=== PATIENT | male | born 1930 | race Caucasian/White ===

== ENCOUNTER 2019-04-19 08:23 | Inpatient (IN) ==
[2019-04-19 10:29] LABS: BASO# 0.03 X1000 (0.0-0.2); BASO% 0.3 % (0.0-0.8); EOS# 0.17 X1000 (0.0-0.7); EOS% 1.9 % (0.0-10.0); HEMATOCRIT 46.9 % (42.0-52.0); HEMOGLOBIN 14.2 g/dL (14.0-18.0); LYMPH# 1.42 X1000 (1.2-3.4); LYMPH% 15.7 % (20.5-51.1); MCH 30.7 PG (27-31); MCHC 30.3 g/dL (33-37); MCV 101.5 FL (81-99); MONO# 0.73 X1000 (0.11-0.59); MONO% 8.1 % (1.7-9.3); NEUT# 6.68 X1000 (1.4-6.5); PLT 170 X1000 (130-400); RBC 4.62 XMIL (4.7-6.1); RDW 15.5 % (11.5-14.5); WBC 9.03 X1000 (4.8-10.8)
[2019-04-19 10:35] LABS: INR 1.01; PROTIME 13.4 Seconds (11.0-16.0)
[2019-04-19 10:52] LABS: PTT 20.3 Seconds (22.3-41.8)
[2019-04-19 10:54] LABS: URINE SOURCE CATH
[2019-04-19 11:05] LABS: COLOR RED; SP GRAVITY URINE 1.022; TURBIDITY URINE TURBID (CLEAR)
[2019-04-19 11:06] LABS: UR EPITHELIAL CELLS <10 /HPF (<10)
[2019-04-19 11:11] LABS: ALB/GLOB RATIO 0.9; ALBUMIN 2.7 g/dL (3.5-5.0); CALCIUM 8.3 mg/dL (8.8-10.2); CREATININE 1.3 mg/dL (0.7-1.2); POTASSIUM 3.4 mmol/L (3.5-5.1); TOTAL BILIRUBIN 0.62 mg/dL (0.20-1.00); TOTAL PROTEIN 5.7 g/dL (6.3-8.3)
[2019-04-19 11:27] LABS: URINE RBC TNTC /HPF (<10); URINE WBC TNTC /HPF (<10)
[2019-04-19 11:28] LABS: BILIRUBIN URINE MODERATE (NEGATIVE); GLUCOSE URINE 100 mg/dL (NEGATIVE); URINE BACTERIA 2+ /HPF
[2019-04-19 11:29] LABS: BLOOD URINE LARGE (NEGATIVE); KETONE URINE 10 mg/dL (NEGATIVE); LEUKOCYTES URINE LARGE (NEGATIVE); NITRITE URINE POSITIVE (NEGATIVE); PROTEIN URINE 300 mg/dL (NEGATIVE); UROBILINOGEN URINE 8 mg/dL (NORMAL)
[2019-04-19] MEDS ORDERED: LEVAQUIN 500 MG/D5W 500 MG/100 ML IVPB IV ONE (11:59)
[2019-04-19] MEDS ORDERED: NS 1,000 ML IV ONE ×2 (12:07→12:08)
--- NOTE | 2019-04-19 12:07 | PROVIDER DOCUMENTATION ---
This chart was entered by Yocasta Dozier Scribe, acting as scribe for Brett Christy MD. HPI-General Adult - General Chief Complaint: Bleeding Disorder Stated Complaint: Male Time Seen by Provider: 04/19/19 08:50 Source: patient Allergies/Adverse Reactions: Patient Allergies Allergy/AdvReac Type Severity Reaction Status Date / Time No Known Allergies Allergy Verified 12/16/17 16:49 Home Medications: Home Medication List Medication Instructions Recorded Confirmed Last Taken Type Aspirin EC 81 mg PO DAILY 06/29/17 12/16/17 Unknown History Pantoprazole [Protonix] 40 mg PO DAILY@0700 #90 tab 07/02/17 12/16/17 Unknown Rx Sucralfate [Carafate Liquid] 1 gm PO AC + HS #120 [facility] [place] 07/02/17 12/16/17 Unknown Rx Clonidine [Catapres] 0.1 mg PO TID #30 tablet 12/21/17 Unknown Rx Lactulose 30 ml PO BID udc 12/21/17 Unknown Rx Linaclotide [Linzess] 145 mcg PO DAILY #0 12/21/17 12/16/17 Unknown Rx Menthol/Zinc Oxide Ointment 1 gm TOP PRN PRN tube 12/21/17 Unknown Rx [Calmoseptine Ointment] - History of Present Illness -Gen Adult Nature of Presenting Problems: 88 yom presents to the ed via ems first response with c/o hematuria. pt comes from [facility] with 2 days by staff of noted in brief of pt. pt is nonverbal with dementai so can not help with history. pt looks to be in no distress on exam Location of Pain/Injury: reports: none Pain Radiation: reports: no radiation Quality of Pain: reports: none Severity: reports: mild Onset/Duration: reports: 2 days ago Timing: reports: still present, intermittent Context/Activities at Onset: reports: light activity Modifying Factors: improves with: nothing Associated Symptoms: reports: genitourinary problems. denies: chest pain, diarrhea, fever/chills, nausea, shortness of breath, vomiting Similar Symptoms Previously?: No Recently seen or treated by another doctor?: No Review of Systems - Adult - REVIEW OF SYSTEMS - ADULT ROS:: limited per condition (pt is nonverbal) Constitutional: denies: chills, fever Eyes: reports: no symptoms reported Ears, Nose, Mouth & Throat: reports: no symptoms reported Cardiovascular: denies: chest pain, palpitations, syncope Respiratory: denies: cough, shortness of breath, wheezing Gastrointestinal: denies: abdominal pain, nausea, vomiting Genitourinary: reports: see HPI, frequent UTI's, hematuria Musculoskeletal: reports: no symptoms reported Integumentary: reports: no symptoms reported Neurological: denies: dizziness/vertigo, headache/migraines Psychiatric: reports: no symptoms reported Endocrine: reports: no symptoms reported Hematologic/Lymphatic: reports: no symptoms reported Allergic/Immunologic: reports: no symptoms reported All Other Systems: Reviewed and Negative Past History - Adult - PAST MEDICAL HISTORY-ADULT Review of Records: reports: Old Records Reviewed, Nursing Assessment Review, Medications Reviewed, Social history reviewed & non-contributory. Major Childhood Illnesses: reports: denies history Cardiovascular: reports: HTN Respiratory: reports: denies history Gastrointestinal: reports: denies history Genitourinary: reports: chronic UTI's Musculoskeletal: reports: denies history Neurological: reports: dementia Psychiatric: reports: denies history Endocrine/Immune: reports: Diabetes Diabetes Type: Type 2 Other Conditions: reports: denies history - PRIOR SURGERIES/PROCEDURES Surgical/Procedure History: reports: reviewed, not pertinent - IMMUNIZATION STATUS Childhood Immunizations: See Nurse Assessment Flu Vaccine: See Nurse Assessment - FAMILY HISTORY Family History: reviewed, not pertinent - SOCIAL HISTORY Smoking: denies Substance Use: denies Living Situation: care facility Physical Exam-General - PHYSICAL EXAM-ADULT Exam Limited by: pt is nonverbal and dementia pt. Initial Vital Signs Reviewed: Yes - CONSTITUTIONAL General Appearance: alert, no apparent distress - EYES Eyes: PERRL/EOMI, pink conjunctivae - HEAD, EARS, NOSE, MOUTH & THROAT HENMT: moist mucous membranes - NECK Neck: non-tender, full range of motion - RESPIRATORY Respiratory: lungs clear, normal breath sounds - CARDIOVASCULAR Cardiovascular: normal peripheral pulses, regular rate, rhythm - CHEST (BREASTS) Chest/Breast: deferred - GASTROINTESTINAL (ABDOMEN) Abdominal Exam: normal bowel sounds, non tender, soft - GENITOURINARY Male Genitalia: uncircumcised (scarring around foreskin), other (hematuria) Rectal Exam: deferred Hemoccult Exam: deferred - LYMPHATIC Lymphatic: no adenopathy - MUSCULOSKELETAL Back Exam: no CVA tenderness, no vertebral tenderness Extremity: normal capillary refill - SKIN Integumentary: normal color, normal turgor, warm/dry Progress - PLAN OF CARE/RESULTS Progress/Plan/Lab Results: Vital Signs - 8 hr 04/19/19 08:24 Temperature 98.2 F Pulse Rate 62 Respiratory Rate 14 Blood Pressure 110/62 O2 Sat by Pulse Oximetry 96 Laboratory Results - last 24 hr 04/19/19 04/19/19 04/19/19 09:48 09:48 09:48 WBC 9.03 RBC 4.62 L Hgb 14.2 Hct 46.9 MCV 101.5 H MCH 30.7 MCHC 30.3 L RDW Std Deviation 15.5 H Plt Count 170 MPV 12.0 H Neut % (Auto) 74.0 Lymph % (Auto) 15.7 L Burt % (Auto) 8.1 Eos % (Auto) 1.9 Baso % (Auto) 0.3 Neut # (Auto) 6.68 H Lymph # (Auto) 1.42 Burt # (Auto) 0.73 H Eos # (Auto) 0.17 Baso # (Auto) 0.03 PT 13.4 INR 1.01 PTT (Actin FS) 20.3 L Sodium 150 H Potassium 3.4 L Chloride 114 H Carbon Dioxide 23 L Anion Gap 13 BUN 23 H Creatinine 1.3 H Estimated GFR/1.73 m2 52 BUN/Creatinine Ratio 18 Glucose 108 H Calculated Osmolality 302 Calcium 8.3 L Total Bilirubin 0.62 AST 34 ALT 67 H Alkaline Phosphatase 350 H Total Protein 5.7 L Albumin 2.7 L Globulin 3.0 Albumin/Globulin Ratio 0.9 Urine Source Urine Color Urine Turbidity Urine pH Ur Specific [place] Urine Protein Ur Glucose (Stick) Ur Ketones (Stick) Urine Blood Urine Nitrite Urine Bilirubin Urobilinogen Dipstick Urine Leukocytes Urine WBC (Auto) Urine RBC (Auto) U Epithel Cells (Auto) Urine Bacteria (Auto) 04/19/19 10:48 WBC RBC Hgb Hct MCV MCH MCHC RDW Std Deviation Plt Count MPV Neut % (Auto) Lymph % (Auto) Burt % (Auto) Eos % (Auto) Baso % (Auto) Neut # (Auto) Lymph # (Auto) Burt # (Auto) Eos # (Auto) Baso # (Auto) PT INR PTT (Actin FS) Sodium Potassium Chloride Carbon Dioxide Anion Gap BUN Creatinine Estimated GFR/1.73 m2 BUN/Creatinine Ratio Glucose Calculated Osmolality Calcium Total Bilirubin AST ALT Alkaline Phosphatase Total Protein Albumin Globulin Albumin/Globulin Ratio Urine Source CATH Urine Color RED Urine Turbidity TURBID Urine pH 8.0 Ur Specific [place] 1.022 Urine Protein 300 A Ur Glucose (Stick) 100 A Ur Ketones (Stick) 10 A Urine Blood LARGE A Urine Nitrite POSITIVE A Urine Bilirubin MODERATE A Urobilinogen Dipstick 8 A Urine Leukocytes LARGE A Urine WBC (Auto) TNTC A Urine RBC (Auto) TNTC A U Epithel Cells (Auto) <10 Urine Bacteria (Auto) 2+ Orders Category Date Time Status Cuellar Cath Insertion ORDERED Care 04/19/19 10:52 Active CBC WITH ELECTRONIC DIFF [HEME] Stat Lab 04/19/19 09:48 Completed COMPREHENSIVE METABOLIC PANEL [CHEM] Stat Lab 04/19/19 09:48 Completed PT [PROTIME WITH INR] [COAG] Stat Lab 04/19/19 09:48 Completed PTT [COAG] Stat Lab 04/19/19 09:48 Completed URINALYSIS W/POSS RFLX CULT [URINALYSIS] Stat Lab 04/19/19 10:48 Completed URINE CULTURE [RM] Routine Lab 04/19/19 11:29 Ordered Result Diagrams: 04/19/19 09:48 04/19/19 09:48 - REASSESSMENT Reassessment #1 Time Reassessed: 11:15 Status: improving ( at bedside) - CONSULTS/PCP/HOSPITALIST Notification #1 *Consult/PCP/Hospitalist*: dr rahman pmd Time Discussed: 11:58 (consult dr beard with urology and admit pt ) Reason/Comments: phone consult Consult Disposition: Will see in ED, Admit #2 Consult: dr beard urology Departure - Departure Date of Disposition Decision: 04/19/19 Time of Disposition Decision: 11:46 DIAGNOSIS: Gross hematuria, Hypernatremia, Renal insufficiency UTI (urinary tract infection) Qualifiers: Urinary tract infection type: site unspecified Hematuria presence: with hematuria Qualified Code(s): N39.0 - Urinary tract infection, site not specified; R31.9 - Hematuria, unspecified Disposition: ADMITTED INPATIENT 09 Certified Medical Emergency: Emergent Condition: Stable Referrals and Follow-Ups: Daniel Rahman MD [Primary Care Provider] - - Critical Care Note This patient required my direct & personal management of CC.: No Attestation - Physician/ ASHLEE Attestation Patient care was provided by Advanced Practice Provider:: No The physician spent face to face time with patient:: Yes Advanced Practice Provider documentation review:: Supervising physician onsite and consulted in the evaluation and care of this patient. The physician did have a face to face encounter with the patient. This chart was documented by the indicated scribe, (Yocasta Dozier Scribe) and accurately reflects the services I performed and decisions made by me, Brett Christy MD, as attested by the provider's signature.
[2019-04-19] MEDS ORDERED: CATAPRES PO PRN (14:34)
[2019-04-19] MEDS: CARAFATE LIQUID PO SCH (19:18)
[2019-04-19] MEDS: ROCEPHIN 1 GM in NS 50 ML IV SCH (20:36)
--- NOTE | 2019-04-19 22:04 | HISTORY AND PHYSICAL ---
CHIEF COMPLAINT: Hematochezia. HISTORY OF PRESENT ILLNESS: Mr. Schaffer is an 88-year-old male patient from [facility] and [facility]. The nurse called me from the half-way because of bleeding from his urethra, which was going on for 2 days. The patient has dementia, hard of hearing. History part was limited. According to nurse, the bleeding was moderate in amount. It was more on his briefs. Patient does have history of recurrent UTI. No high-grade fever. The patient did have low-grade fever and some chills. We sent the patient to the emergency room for evaluation. Evaluated by ER physician. There was concern about tight phimosis, UTI, hematuria and we decided to admit the patient for further care and urology evaluation. The patient is not able to give any history. Oral intake was fair to poor. No nausea, or vomiting. No history of abdominal pain. The patient does have a history suggestive of constipation requiring laxative. No scrotal swelling. No unusual cough, expectoration, or hemoptysis. No history suggestive of chest pain, palpitations, orthopnea or PND. Patient does have some hearing impairment. Significant arthritis involving the knee joints, hip joints and the back. The patient does have dementia. No further history available at this time. ALLERGIES: No known drug allergy. MEDICATIONS: The patient is on aspirin, Protonix, Carafate, clonidine, lactulose, Linzess, and zinc oxide. PAST MEDICAL HISTORY: Gastritis, chronic constipation, hypertension, osteoarthritis, recurrent UTI, NIDDM, dementia. PRIOR SURGICAL HISTORY: Patient had hemorrhoidectomy. FAMILY HISTORY: Significant for coronary artery disease. REVIEW OF SYSTEMS: As per HPI. Otherwise unobtainable. PHYSICAL EXAMINATION: GENERAL: Elderly white gentleman in mild distress. VITAL SIGNS: Blood pressure 142/76, pulse 64, respiration 13, temperature. 98.2. SKIN: Senile turgor. HEENT: Head atraumatic, normocephalic. Hunter conjunctivae. Anicteric sclerae. Extraocular muscle movement normal. Fundus cannot be penetrated. Good oral hygiene. No tonsillopharyngeal congestion or exudate. Ears and nose benign. NECK: Supple. No JVD, thyromegaly or lymphadenopathy. CHEST: Bibasilar crepitation, no rales. CARDIOVASCULAR: S1 and S2 heard. No gallop or thrill. ABDOMEN: Soft, globular. Bowel sounds present. No organomegaly or mass. EXTREMITIES: No cyanosis, clubbing. No acute DVT. WEB SERVICES MANAGER: Alert, awake able to move all 4 limbs. MUSCULOSKELETAL: Crepitation in both the knee joints. Movement of the knee limited. Patient also have evidence of arthritis of the ankle. No acute vascular compromise. WEB SERVICES MANAGER: Alert, awake uncooperative for detailed exam. LABORATORY DATA: Revealed sodium 150, potassium 3.4, BUN 23, creatinine 1.3, chloride 114, calcium 8.3, alkaline phosphatase 350, total protein 5.7, albumin 2.7. PT/INR 1.01, PTT 20.3. Urinalysis nitrite positive, blood large, urine bilirubin moderate, too numerous to count WBCs and RBC, 2+ bacteria suggestive of UTI. CBC did reveal MCV 101.5, MCHC 30.3. Hemoglobin 14.2, hematocrit 46.9. CONSIDERATION: 1. Patient admitted with hematochezia found to have a urinary tract infection. His presentation could be due to hemorrhagic cystitis. 2. The patient also had mild hypokalemia and hypernatremia could be due to mild dehydration. 3. Other consideration hemorrhagic cystitis. The patient does have diffuse osteoarthritis, gastritis, reflux disease, osteoarthritis, phimosis, gastritis and reflux disease. PLAN: Admit the patient. IV antibiotics. Close observation. Overall plan discussed at length with the patient and she is in agreement. We will try to discussed with the family when they are available. The patient does have advanced dementia. We will repeat blood work in the morning. We will treat his constipation. I also did Urology consult. cc: Daniel Ortega MD
--- NOTE | 2019-04-19 22:29 | CONSULTATION ---
DATE OF CONSULTATION: 04/19/2019 HISTORY OF PRESENT ILLNESS: This 88-year-old male was admitted with a urinary tract infection and gross hematuria. The patient has severe dementia and cannot answer questions. His son is at bedside and states he normally manages his bladder with a diaper. He states that he just voids into the diaper. He has done that for several years without difficulty. The patient's son states that a catheter was placed several days ago. He is not sure why. The patient's son states he has never had urologic surgery. He may have had a kidney stone. He has not had problems with hematuria previously. He states he does not think he has had urinary infections. PAST MEDICAL HISTORY: Hypertension, gastroesophageal reflux disease, diabetes, severe constipation, severe dehydration, severe dementia. CURRENT MEDICATIONS: Include Linzess, an 81 mg aspirin a day, lactulose, Protonix, lisinopril. PAST SURGICAL HISTORY: Hemorrhoidectomy, teeth extraction, esophagogastroscopy. SOCIAL HISTORY: He lives in a intermediate. No tobacco or alcohol use. ALLERGIES: No known drug allergies is on his chart. The patient has severe dementia and does not answer questions. PHYSICAL EXAMINATION: General: An obese, age apparent, white male who is sleeping with his mouth open and does not answer questions. HEENT: He is edentulous otherwise normal for age. Lungs: Clear. Cardiovascular: Regular rate and rhythm with distant S1, S2. Abdomen: Obese, soft, no apparent tenderness. : Uncircumcised male. Foreskin retracts and it is easily reducible. Cuellar catheter in place. Some increased redness of the glans consistent with a probable yeast infection secondary to diabetes. Rectal: Deferred. Extremities: No clubbing, cyanosis, or edema. Neuro: The patient does not cooperate with the neurological exam. Cuellar catheter is in place draining bloody urine. LABORATORY EVALUATION: He has a white count of 9.03, a hemoglobin 14.2, hematocrit of 46.9 and platelets are 170,000. Serum electrolytes have a sodium of 150, potassium 3.4, chloride 114, bicarb 23, BUN 23, creatinine 1.3. Serum glucose is 108, his alkaline phosphatase is 350. Urinalysis has red urine, large blood on the dipstick, positive nitrite, large leukocytes. Microscopic exam has too numerous to count white cells, too numerous to count red cells and 2+ bacteria. IMPRESSION: 1. Hematuria, probably hemorrhagic cystitis. 2. Neurogenic bladder that was previously managed with diapers. RECOMMEND: 1. Check urine culture and sensitivities. 2. Continue IV Rocephin. 3. Will probably need a cystoscopic exam with bilateral retrograde ureteral pyelograms after the culture and sensitivity results are known. 4. A CT scan in 2018 revealed a small right nonobstructing stone and left renal cyst. 5. Contact the [facility] to find out why a Cuellar catheter was initially placed. Thank you for this consultation. cc: MD Daniel Flower MD [facility] CENTERMisha
[2019-04-20] MEDS: CARAFATE LIQUID PO SCH ×4 (00:35→16:54)
[2019-04-20] MEDS: LACTULOSE PO SCH ×2 (00:36→09:27)
[2019-04-20] MEDS: POTASSIUM CHLORIDE 10 MEQ in NS 1,000 ML IV SCH ×3 (02:30→13:05)
[2019-04-20 07:04] LABS: HEMATOCRIT 42.9 % (42.0-52.0); HEMOGLOBIN 12.8 g/dL (14.0-18.0); MCH 30.4 PG (27-31); MCHC 29.8 g/dL (33-37); MCV 101.9 FL (81-99); MPV 11.4 FL (7.4-10.4); RBC 4.21 XMIL (4.7-6.1); RDW 14.9 % (11.5-14.5); WBC 9.85 X1000 (4.8-10.8)
[2019-04-20] MEDS ORDERED: CALMOSEPTINE OINTMENT TOP PRN (07:45)
[2019-04-20 07:56] LABS: AGAP 11; ALB/GLOB RATIO 0.6; ALBUMIN 2.2 g/dL (3.5-5.0); ALKALINE PHOSPHATASE 247 U/L (32-122); BUN 19 mg/dL (8-22); CHLORIDE 112 mmol/L (98-107); COSMO 294; CREATININE 1.1 mg/dL (0.7-1.2); ESTIMATED GFR > 60; GLUCOSE 80 mg/dL (70-104); GOT 21 U/L (10-34); GPT 45 U/L (10-44); MAGNESIUM 1.8 mg/dL (1.5-2.7); POTASSIUM 3.5 mmol/L (3.5-5.1); SODIUM 147 mmol/L (136-145); TCO2 24 mmol/L (25-35); TOTAL BILIRUBIN 0.52 mg/dL (0.20-1.00); TOTAL PROTEIN 5.8 g/dL (6.3-8.3)
[2019-04-20] MEDS: PROTONIX PO SCH (08:03)
--- NOTE | 2019-04-20 08:05 | EKG Report ---
Test Performed on : 04/20/2019 07:48:55 AM Test Reason : CP Blood Pressure : / mmHG Vent. Rate : 068 BPM Atrial Rate : 068 BPM P-R Int : 218 ms QRS Dur : 118 ms QT Int : 414 ms P-R-T Axes : 023 -71 019 degrees QTc Int : 440 ms Sinus rhythm. with 1st degree AV block. with premature supraventricular complexes. Left axis deviation Left ventricular hypertrophy with QRS widening Inferior infarct , age undetermined Anterolateral infarct , age undetermined Abnormal ECG When compared with ECG of 16-DEC-2017 17:11, Sinus rhythm. has replaced Wide QRS rhythm. Confirmed by Thuan GARCES, Robyn Chacon ([id number]) on 04/20/2019 8:32:56 AM
[2019-04-20 08:08] LABS: HEMOGLOBIN A1C 5.4 % (4.8-6.0)
--- NOTE | 2019-04-20 08:39 | Diag Imaging Result Doc PS360 ---
EXAM: ABDOMEN FLAT/UPRIGHT 04/20/2019 HISTORY: sbo TECHNIQUE: Flat and upright abdomen COMMENT: There is colonic gas without significant dilatation and no evidence of small bowel dilatation. There is fecal impaction in the rectum. No evidence organomegaly or mass is present. IMPRESSION: Fecal impaction. Electronically signed by Abdifatah Azar 04/20/2019 8:36 AM
[2019-04-20] MEDS: ASPIRIN EC PO SCH (09:28)
[2019-04-20] MEDS: LINZESS PO SCH (09:28)
--- NOTE | 2019-04-20 10:08 | PROGRESS NOTE ---
DATE: 04/20/2019 SUBJECTIVE: Mr. Jo is going fair. The patient is still have some blood in the urine. No high-grade fever or chills. No nausea or vomiting. No history suggestive of chest pain, unusual cough or expectoration. OBJECTIVE: Vital Signs: Blood pressure 134/79, pulse 98, respiration 19, temperature 97.5 degrees. Skin: Senile turgor. Neck: Supple. No JVD. Lungs: Bibasilar crepitations. Heart: 2/6 systolic murmur at the apex. Abdomen: Soft, nontender. Bowel sounds present. Extremities: No cyanosis, clubbing. Patient does have osteoarthritis of the knee. Limited mobility PRODUCTION ESTIMATOR is alert, awake, uncooperative for detailed exam. LABS: Ordered for this morning. Results are pending. ASSESSMENT/PLAN: 1. Patient admitted with hematuria most likely hemorrhagic cystitis. Urinalysis did reveal UTI. Appreciate Dr. Landry help managing this patient. 2. Gastritis and reflux disease. 3. Advanced dementia. 4. According to ER physician the patient did have significant tight phimosis. 5. Diffuse osteoarthritis. 6. I am going to continue hydration. IV antibiotics. Close observation. 7. Overall plan we will discuss with family when they are available. cc: Daniel Ortega MD
[2019-04-20] MEDS: ROCEPHIN 1 GM in NS 50 ML IV SCH (14:55)
[2019-04-20] MEDS: D5W + KCL 20 MEQ 1,000 ML IV SCH ×2 (18:11→18:14)
[2019-04-21] MEDS: LACTULOSE PO SCH ×3 (00:28→23:00)
[2019-04-21] MEDS: CARAFATE LIQUID PO SCH ×5 (00:28→23:00)
[2019-04-21] MEDS: PROTONIX PO SCH (06:47)
[2019-04-21] MEDS: D5W + KCL 20 MEQ 1,000 ML IV SCH (07:01)
[2019-04-21] MEDS: PROTONIX IV SCH (08:13)
[2019-04-21] MEDS: SODIUM CHLORIDE 0.9% INJ SCH (08:14)
--- NOTE | 2019-04-21 08:54 | PROGRESS NOTE ---
DATE: 04/21/2019 Mr. Jo is doing better. Nurse reported to me that the patient was having problem with swallowing pills at times. No high-grade fever or chills. Urine is growing more than 100,000 gram negative bacteria. Identity and sensitivity is pending. cc: Daniel Ortega MD
[2019-04-21] MEDS: ASPIRIN EC PO SCH (09:15)
[2019-04-21] MEDS: LINZESS PO SCH (09:15)
--- NOTE | 2019-04-21 09:19 | PROGRESS NOTE ---
DATE: 04/21/2019 CONTINUATION REPORT OBJECTIVE: Vital signs: Blood pressure 115/57, pulse 54, respirations 12, temperature 98 degrees. Skin: Senile turgor. Neck: Supple. No JVD. Lungs: Bilateral good air entry present. Cardiovascular: S1 and S2 heard. A 2/6 systolic murmur at the apex. Abdomen: Soft, globular. Bowel sounds present. Extremities: No cyanosis, clubbing. No acute DVT. Central nervous system: Alert, awake, able to move all 4 limbs. Uncooperative for detailed exam. CONSIDERATION: Patient admitted with hemorrhagic cystitis, urinary tract infection, urine culture result is pending, dysphagia, gastritis. I am going to change p.o. Protonix to IV Protonix, continue rest of the treatment, close observation. Aspiration precautions. The patient is going to have a cystoscopy. I started patient on Clinimix for nutritional support, continue rest of the treatment, close observation. The patient's condition and plan, prognosis discussed with the patient's son, who was present yesterday evening. cc: Daniel Ortega MD
[2019-04-21] MEDS: CLINIMIX E 4.25%-5% SOLUTION 1,000 ML IV SCH ×2 (11:32→11:47)
[2019-04-21] MEDS: ROCEPHIN 1 GM in NS 50 ML IV SCH (15:50)
[2019-04-22] MEDS: CLINIMIX E 4.25%-5% SOLUTION 1,000 ML IV SCH (06:51)
[2019-04-22] MEDS: CARAFATE LIQUID PO SCH ×4 (06:52→21:54)
[2019-04-22 07:46] LABS: BASO# 0.06 X1000 (0.0-0.2); BASO% 0.6 % (0.0-0.8); EOS% 5.4 % (0.0-10.0); HEMATOCRIT 42.2 % (42.0-52.0); IMM GRAN# 0.05 X1000 (0.0-0.04); IMM GRAN% 0.5 % (0.0-0.5); LYMPH# 2.73 X1000 (1.2-3.4); LYMPH% 29.3 % (20.5-51.1); MCH 31.2 PG (27-31); MCHC 30.8 g/dL (33-37); MCV 101.2 FL (81-99); MONO# 0.73 X1000 (0.11-0.59); MONO% 7.8 % (1.7-9.3); MPV 11.8 FL (7.4-10.4); NEUT# 5.24 X1000 (1.4-6.5); NEUT% 56.4 % (42.2-75.2); PLT 229 X1000 (130-400); RBC 4.17 XMIL (4.7-6.1); RDW 14.7 % (11.5-14.5); WBC 9.31 X1000 (4.8-10.8)
[2019-04-22 08:18] LABS: HEMOGLOBIN A1C 5.5 % (4.8-6.0)
[2019-04-22 08:19] LABS: AGAP 12; ALB/GLOB RATIO 0.9; ALBUMIN 2.5 g/dL (3.5-5.0); ALKALINE PHOSPHATASE 205 U/L (32-122); BUN 14 mg/dL (8-22); CALCIUM 8.1 mg/dL (8.8-10.2); CHLORIDE 110 mmol/L (98-107); COSMO 287; CREATININE 0.9 mg/dL (0.7-1.2); ESTIMATED GFR > 60; GLUCOSE 96 mg/dL (70-104); GOT 17 U/L (10-34); GPT 28 U/L (10-44); MAGNESIUM 1.9 mg/dL (1.5-2.7); POTASSIUM 4.2 mmol/L (3.5-5.1); SODIUM 144 mmol/L (136-145); TCO2 22 mmol/L (25-35); TOTAL BILIRUBIN 0.33 mg/dL (0.20-1.00); TOTAL PROTEIN 5.3 g/dL (6.3-8.3)
[2019-04-22] MEDS: PROTONIX IV SCH (08:37)
[2019-04-22] MEDS: SODIUM CHLORIDE 0.9% INJ SCH (08:38)
[2019-04-22] MEDS: LACTULOSE PO SCH ×2 (12:11→21:54)
[2019-04-22] MEDS: LINZESS PO SCH (12:11)
[2019-04-22] MEDS: ASPIRIN EC PO SCH (12:11)
[2019-04-22] MEDS ORDERED: DIPRIVAN 1% ONE (14:40)
[2019-04-22] MEDS ORDERED: XYLOCAINE-MPF 2% ONE (14:40)
[2019-04-22] MEDS ORDERED: NEOSPORIN G.U. IRRIGANT ONE (14:50)
[2019-04-22] MEDS: ROCEPHIN 1 GM in NS 50 ML IV SCH (15:20)
[2019-04-22] MEDS ORDERED: ZOFRAN ONE (15:35)
--- NOTE | 2019-04-22 19:39 | OPERATIVE NOTE ---
PROCEDURE DATE: 04/22/2019 SURGEON: Keven Landry MD. PREOPERATIVE DIAGNOSIS: Gross hematuria with probable hemorrhagic cystitis due to Proteus infection. POSTOPERATIVE DIAGNOSIS: Gross hematuria with probable hemorrhagic cystitis due to Proteus infection. PROCEDURE PERFORMED: Cystoscopic exam, clot irrigation, bilateral retrograde ureteral pyelograms. ANESTHESIA: General via laryngeal mask. FINDINGS: Cystoscopic exam: Urethra greater than 21 [place]ib[place]ian without stricture. Prostate-status post TURP with undermining of the bladder neck. Length approximately 3.5 cm. Bladder-normal ureteral orifices bilaterally. Grade 2 trabeculations. There was a diverticulum with an approximate 3 cm opening on the right mid posterolateral wall that was easily scoped. No abnormal areas inside the diverticulum. No papillary lesions noted. Left retrograde ureteral pyelogram normal without filling defect. Right retrograde ureteral pyelogram normal without filling defect. Rectal exam reveals a prostate of about 40 g, smooth, and symmetric. INDICATION FOR PROCEDURE: This 88-year-old male who has severe dementia that lives in a residential was admitted from the residential with gross hematuria. A urine culture grew greater than 100,000 Proteus. The patient has been on appropriate antibiotics for several days but persists with hematuria. DESCRIPTION OF PROCEDURE: After informed consent was obtained from the patient's family and him receiving his routine IV antibiotics, he was taken the main OR cystoscopy room, placed in supine position. General anesthesia via laryngeal mask was achieved. He was then placed in the low lithotomy position and prepped and draped in the usual sterile fashion for cystoscopic exam. A 21- [place]ib[place]ian cystoscope was passed through the patient's urethra, prostate, and in the bladder with findings noted above. A Agnes syringe was used to irrigate clots from the bladder. The cystoscope was then performed with findings as noted above. There was diffuse redness throughout the bladder consistent with a urinary tract infection. The 8-[place]ib[place]ian cone-tipped catheter was passed through the cystoscope, engaged left ureteral orifice. Contrast was injected. Right side was accomplished similarly. Again, no filling defects were seen on either side. The 8-[place]ib[place]ian cone-tipped catheter was removed. The bladder was left distended. The cystoscope was removed. A 20-D[place]iboutian 3-way Cuellar catheter was passed through the patient's urethra, prostate, and in the bladder without difficulty, 15 mL sterile water were placed in the Cuellar's balloon. Cuellar was placed to gravity drain. The efflux was light pink. Continuous bladder irrigation was started and it cleared. He tolerated the procedure well. Estimated blood loss less than 1 mL during the case. He was taken to the recovery room in good condition. cc: MD Daniel Flower MD
--- NOTE | 2019-04-22 19:57 | PROGRESS NOTE ---
DATE: 04/22/2019 SUBJECTIVE: I evaluated Mr. Jo in the morning. The patient is not communicating well. The patient seems to be in his usual state of health. He denied any fever or chills. Tolerating Clinimix well. The patient had some extravasation of IV fluid on the left forearm. No history of fevers chills, nausea, vomiting. Oral intake is variable. No diarrhea, blood, or mucus in the stool. The patient is scheduled to have a cystoscopy today. PAST MEDICAL HISTORY: Noted. MEDICATIONS: Noted. PHYSICAL EXAMINATION: Vital signs: Blood pressure 138/74, pulse 60, respirations 20, temperature 97.9 degrees. Skin: Senile turgor. Neck: Supple. No JVD. Lungs: Bibasilar crepitations. Heart: S1 and S2 heard. 2 to 3/6 systolic murmur at the apex. Abdomen: Soft, globular. Bowel sounds present. [employer] CONCI[employer]GE: Alert, awake. Able to move all 4 limbs. Uncooperative. Extremities: Patient does have swelling of the forearm due to extravasation of IV fluid. LABORATORY DATA: Done today: Hemoglobin 13, hematocrit 42.2, WBC count 9.31, platelet count 229,000. BUN 14, creatinine 0.9. Sodium 144, potassium 4.2. Hemoglobin A1c was 5.5. Urine culture results reviewed. CONSIDERATION: 1. Hemorrhagic cystitis. Urine seems to be getting clearer. 2. Hypertension. Most of the time, blood pressure is better. 3. Dementia. 4. Constipation. 5. Osteoarthritis. We will continue current treatment and close observation. Because of the weekend, we will discharge patient back to rehab on Thursday. cc: Daniel Ortega MD
[2019-04-22] MEDS: FLOMAX PO SCH (21:52)
[2019-04-22] MEDS: PERIDEX MT SCH (21:54)
[2019-04-23] MEDS: CLINIMIX E 4.25%-5% SOLUTION 1,000 ML IV SCH ×2 (04:34→15:05)
[2019-04-23] MEDS: CARAFATE LIQUID PO SCH ×4 (06:50→21:23)
[2019-04-23] MEDS: SODIUM CHLORIDE 0.9% INJ SCH (06:50)
[2019-04-23] MEDS: PROTONIX IV SCH (06:50)
[2019-04-23] MEDS: ASPIRIN EC PO SCH (09:51)
[2019-04-23] MEDS: FLOMAX PO SCH ×2 (09:51→21:23)
[2019-04-23] MEDS: LACTULOSE PO SCH ×2 (09:51→21:23)
[2019-04-23] MEDS: LINZESS PO SCH (09:51)
[2019-04-23] MEDS: PERIDEX MT SCH ×2 (10:10→21:23)
--- NOTE | 2019-04-23 10:39 | PROGRESS NOTE ---
DATE: 04/23/2019 SUBJECTIVE: Mr. Schaffer is doing fairly well. Urine is getting clear. No high-grade fever or chills. The patient had cystoscopy done yesterday, result reviewed. No nausea or vomiting. No typical chest pain, unusual cough, or expectoration. OBJECTIVE: Vital Signs: Noted. Oxygen saturation staying around 93%. Blood pressure 142/76, pulse 72, respiration 14, temperature 97.7 degrees. Skin: Senile turgor. Neck: Supple. No JVD. Lungs: Bilateral good air entry present. Few basal crepitations. Cardiovascular: 2-3/6 systolic murmur at the apex. Abdomen: Soft, nontender. Bowel sounds present. Disuse atrophy of the lower limb. LABORATORY DATA: Done yesterday reviewed. CONSIDERATION: 1. Hemorrhagic cystitis status post cystoscopy and retrograde pyelogram. 2. Gastritis and reflux disease. 3. Dementia. 4. Osteoarthritis Continue current treatment. Plan is to discharge patient to rehabilitation on Thursday. cc: Daniel Ortega MD
[2019-04-23] MEDS: ROCEPHIN 1 GM in NS 50 ML IV SCH (15:04)
[2019-04-24] MEDS: PROTONIX IV SCH (06:28)
[2019-04-24] MEDS: SODIUM CHLORIDE 0.9% INJ SCH (06:28)
[2019-04-24] MEDS: CARAFATE LIQUID PO SCH ×4 (06:29→20:14)
[2019-04-24 07:58] LABS: BASO# 0.05 X1000 (0.0-0.2); BASO% 0.7 % (0.0-0.8); EOS# 0.19 X1000 (0.0-0.7); EOS% 2.8 % (0.0-10.0); HEMATOCRIT 41.8 % (42.0-52.0); HEMOGLOBIN 12.7 g/dL (14.0-18.0); IMM GRAN# 0.03 X1000 (0.0-0.04); IMM GRAN% 0.4 % (0.0-0.5); LYMPH# 1.97 X1000 (1.2-3.4); LYMPH% 28.6 % (20.5-51.1); MCH 30.3 PG (27-31); MCHC 30.4 g/dL (33-37); MCV 99.8 FL (81-99); MONO# 0.75 X1000 (0.11-0.59); MONO% 10.9 % (1.7-9.3); MPV 11.4 FL (7.4-10.4); NEUT# 3.89 X1000 (1.4-6.5); NEUT% 56.6 % (42.2-75.2); PLT 235 X1000 (130-400); RBC 4.19 XMIL (4.7-6.1); RDW 14.4 % (11.5-14.5); WBC 6.88 X1000 (4.8-10.8)
[2019-04-24 08:09] LABS: AGAP 9; BUN 25 mg/dL (8-22); CALCIUM 8.5 mg/dL (8.8-10.2); CHLORIDE 105 mmol/L (98-107); COSMO 282; CREATININE 0.9 mg/dL (0.7-1.2); ESTIMATED GFR > 60; GLUCOSE 102 mg/dL (70-104); POTASSIUM 4.1 mmol/L (3.5-5.1); SODIUM 139 mmol/L (136-145); TCO2 25 mmol/L (25-35)
[2019-04-24] MEDS: FLOMAX PO SCH ×2 (08:31→20:14)
[2019-04-24] MEDS: CLINIMIX E 4.25%-5% SOLUTION 1,000 ML IV SCH (08:31)
[2019-04-24] MEDS: ASPIRIN EC PO SCH (08:31)
[2019-04-24] MEDS: LINZESS PO SCH (08:31)
[2019-04-24] MEDS: LACTULOSE PO SCH ×2 (08:31→20:07)
[2019-04-24] MEDS: PERIDEX MT SCH ×2 (09:38→20:14)
--- NOTE | 2019-04-24 12:06 | PROGRESS NOTE ---
DATE: 04/24/2019 SUBJECTIVE: Patient appears stable. He is resting comfortably, and I did not awake him. OBJECTIVE: Vital signs: T-max 99.7 degrees at midnight, T current 98, pulse 70, respirations 16, blood pressure 121/71, O2 saturation on room air 95%. CV: Regular rate and rhythm with 2 to 3/6 murmur. Lungs: CTA. Abdomen: Soft. Active bowel sounds. Nontender, nondistended. Extremities: No calf tenderness, cords or edema. DIAGNOSTIC DATA: White count 6.88, hemoglobin 12.7, platelets 235,000. Sodium 139, potassium 4.1, chloride 105, CO2 25, BUN 25, creatinine 0.9, glucose 102, calcium 8.5. Urine culture has grown out Proteus. Sensitivities show the organism sensitive to all antibiotics except Macrobid and did not specifically test again ceftriaxone which the patient is on. ASSESSMENT: 1. Hemorrhagic cystitis, status post cystoscopy with retrograde pyelogram. 2. Gastritis and gastroesophageal reflux disease. 3. Dementia. 4. Osteoarthritis. PLAN: We will continue his Rocephin currently, and I understand he has plans for rehab placement tomorrow. So, we will go ahead and give him a daily dose of low-dose Levaquin and continue supportive measures. cc: MD Daniel Ramirez MD
[2019-04-24] MEDS: ROCEPHIN 1 GM in NS 50 ML IV SCH (15:52)
[2019-04-24] MEDS: LEVAQUIN PO SCH (15:52)
[2019-04-25] MEDS: CLINIMIX E 4.25%-5% SOLUTION 1,000 ML IV SCH (02:27)
--- NOTE | 2019-04-25 07:06 | DISCHARGE SUMMARY ---
ADMISSION DATE: 04/19/2019 DISCHARGE DATE: FINAL DISCHARGE DIAGNOSES: 1. Hemorrhagic cystitis. 2. Urinary tract infection. 3. Hypertension. 4. Dysphagia. 5. Gastritis and reflux disease. 6. Osteoarthritis. 7. Dementia. HISTORY OF PRESENT ILLNESS: Mr. Jo is an 88-year-old, white gentleman, admitted with hematochezia. Urine did show UTI. At times, patient noticed to have dysphagia. We treated the patient with proton pump inhibitor, IV hydration. Urology consult obtained with Dr. Landry. The patient underwent cystoscopy and retrograde pyelogram, which revealed hemorrhagic cystitis due to Proteus infection. Because of poor oral intake, we did gave him Clinimix. Overall, the patient is doing better. Hematuria cleared up. The patient remains afebrile. The patient is not giving good history. PHYSICAL EXAMINATION: Vital Signs: Noted, which are stable. Neck: Supple. No JVD. Lungs: Bilateral good air entry present. CVS: S1 and S2 heard. A 2 to 3/6 systolic murmur at the apex. Abdomen: Soft, nontender. Bowel sounds present. [employer]ER: Alert, awake, able to move all 4 limbs. Uncooperative for detailed exam. The patient does have dementia. LABORATORY DATA: Lab data done yesterday shows hemoglobin 12.7, hematocrit 41.8, WBC count 6.88, platelet count 238,000. BUN was 25, creatinine 0.9. Urine culture grew Proteus mirabilis, which is sensitive to Levaquin. PLAN: I am going to discharge him home on Levaquin 250 p.o. daily for 5 more days. Overall discharge condition is satisfactory. Aspiration precautions. Fall precaution. Change position frequently. cc: Daniel Ortega MD
--- NOTE | 2019-04-25 09:43 | Diag Imaging Result Doc PS360 ---
RETROGRADES 2 OR 3 FILMS - 04/22/2019 INDICATION: BILAT RETORGRADE, CYSTOSCOPY TECHNIQUE: Bilateral ureterograms. The exam was performed by the patient's urologist. Total fluoroscopy time was 29 seconds. 27 images were obtained. COMPARISON: None FINDINGS: The ureters and renal collecting systems are normal bilaterally. IMPRESSION: Negative exam. Electronically signed by Jairo Sharma 04/25/2019 9:40 AM
[2019-04-25] MEDS: PERIDEX MT SCH (10:14)
[2019-04-25] MEDS: SODIUM CHLORIDE 0.9% INJ SCH (10:17)
[2019-04-25] MEDS: LEVAQUIN PO SCH (10:17)
[2019-04-25] MEDS: PROTONIX IV SCH (10:17)
[2019-04-25] MEDS: LINZESS PO SCH (10:17)
[2019-04-25] MEDS: LACTULOSE PO SCH ×2 (10:17→10:22)
[2019-04-25] MEDS: ASPIRIN EC PO SCH (10:17)
[2019-04-25] MEDS: FLOMAX PO SCH (10:18)
[2019-04-25 11:19] VITALS: BP 119/65
== END 2019-04-25 13:07 | DRG 690 ==
LOC: SUPCPDRO → ED 08:23 → EDIPHOLD 12:22 → 4N 12:47
PROVIDERS: ADMIT Internal Medicine; ATTEND Internal Medicine